=== PATIENT | female | born 2000 | race Caucasian/White ===

== ENCOUNTER 2018-02-04 14:49 | Emergency (ER) | payer OTHER ==
--- NOTE | 2018-02-04 16:09 | RAD REPORT ---
EXAM DESCRIPTION: RAD - Hand Right 3 View - 02/04/2018 4:00 pm CLINICAL HISTORY: Laceration. COMPARISON: None. FINDINGS: No fracture is identified. There is no dislocation or periosteal reaction noted. No foreign body or other soft tissue abnormalit y. IMPRESSION: Negative right hand examination.
[2018-02-04] MEDS ORDERED: LIDOCAINE 1% 20 ML MDV ONE (17:23)
--- NOTE | 2018-02-04 18:10 | ER ---
Nurse's Notes [facility] Name: Jesse Arce Age: 17 yrs Sex: Female : 2000 Arrival Date: 02/04/2018 Time: 14:50 Bed 18 Private MD: None, None Diagnosis: Laceration without foreign body of right hand Presentation: 02/04 15:27 Presenting complaint: Patient states: i fell on my mirror and the mirror was broken, hj had a cut on my R hand; happened around 1:30pm today; denies tingling and numbness on the hand;. Transition of care: patient was not received from another setting of care. Complicating Factors: unknwon if glass or foreing body is present;. Onset of symptoms was February 04, 2018. Care prior to arrival: None. 15:27 Method Of Arrival: Ambulatory 15:27 Acuity: MAYA 4 hj Triage Assessment: 15:29 General: Appears in no apparent distress. uncomfortable, Behavior is calm, cooperative, hj appropriate for age. Pain: Complains of pain in dorsum of right hand. Injury Description: Laceration sustained to dorsum of right hand. 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 - Social history:: Smoking status: Patient/guardian denies using tobacco. Screenin:10 Abuse screen: Denies threats or abuse. Nutritional screening: No deficits noted. em Tuberculosis screening: No symptoms or risk factors identified. Fall Risk None identified. Assessment: 17:10 General: Appears in no apparent distress. comfortable, Behavior is calm, cooperative. em Pain: Complains of pain in right hand Pain currently is 4 out of 10 on a pain scale. Neuro: Level of Consciousness is awake, alert, obeys commands, Oriented to person, place, time, situation. Cardiovascular: Capillary refill < 3 seconds Patient's skin is warm and dry. Respiratory: Airway is patent Respiratory effort is even, unlabored, Respiratory pattern is regular, symmetrical. GI: Abdomen is flat. : No signs and/or symptoms were reported regarding the genitourinary system. EENT: No signs and/or symptoms were reported regarding the EENT system. Derm: Skin is intact, Skin is pink, warm \T\ dry. Musculoskeletal: Range of motion: intact in all extremities. Injury Description: Laceration sustained to right hand is clean, 0.5 to 2.5 cm long, was sustained 2-4 hours ago. is bleeding no active bleeding noted. 17:35 Reassessment: Patient appears in no apparent distress at this time. I agree with above iw assessment by Scot Armendariz LVN. 18:10 Reassessment: Patient appears in no apparent distress at this time. Patient and/or em family updated on plan of care and expected duration. Pain level reassessed. Patient is alert, oriented x 3, equal unlabored respirations, skin warm/dry/pink. Patient denies pain at this time. Vital Signs: 15:29 BP 122 / 76; Pulse 69; Resp 18; Temp 99.5(TE); Pulse Ox 100% on R/A; Weight 52.16 kg; hj Height 5 ft. 4 in. (162.56 cm); Pain 4/10; 17:33 BP 118 / 86; Pulse 70; Resp 16; Pulse Ox 99% on R/A; Pain 2/10; em 15:29 Body Mass Index 19.74 (52.16 kg, 162.56 cm) ED Course: 14:50 Patient arrived in ED. mr 14:51 None, None is Private Physician. mr 15:29 Triage completed. hj 15:31 Arm band placed on left wrist. hj 15:51 X-ray completed. Portable x-ray completed in exam room. Patient tolerated procedure ml well. 16:47 Deisi Ellsworth, FILM TECHNICIAN is PHCP. rh1 16:47 Theo Weir MD is Attending Physician. rh1 17:02 Scot Armendariz LVN is Primary Nurse. em 17:10 Patient has correct armband on for positive identification. Bed in low position. Call em light in reach. Side rails up X2. 17:45 Assist provider with laceration repair on right hand that was between 2.6 to 7.5 cm em using sutures. Set up tray. Performed by Deisi Ellsworth FILM TECHNICIAN Dressed with 4X4s, Neosporin, Patient tolerated well. 18:50 Patient did not have IV access during this emergency room visit. em Administered Medications: 17:20 Drug: Lidocaine (1 %) 1 vials {Note: administered by JAYNE Lipscomb.} Volume: 20 ml; Route: em Infiltration; Outcome: 18:09 Discharge ordered by . 1 18:49 Discharged to home ambulatory. em 18:49 Condition: good 18:49 Discharge instructions given to patient, family, Instructed on discharge instructions, follow up and referral plans. Demonstrated understanding of instructions, follow-up care. 18:51 Patient left the ED. em Signatures: Alanis James mr Armendariz, Scot, MATERIALS MANAGER MATERIALS MANAGER em Alexus Pickett, RN RN Consuelo Narvaez Rachel, NP FILM TECHNICIAN rh1 Abdelrahman Foster RN RN hj Corrections: (The following items were deleted from the chart) 15:31 15:29 Pulse 69bpm; Resp 18bpm; Pulse Ox 100% RA; Temp 99.5F Temporal; 52.16 kg; Height hj 5 ft. 4 in.; BMI: 19.7; Pain 4/10; hj 17:41 15:27 Presenting complaint: Patient states: i fell on my mirror and the mirroe got hj broke, had a cut on my R hand; happened around 1:30pm today; denies tingling and numbness on the hand; hj 18:01 17:10 No provider procedures requiring assistance completed. em em
--- NOTE | 2018-02-04 18:11 | EDPHYS ---
Physician Documentation [facility] Name: Jesse Arce Age: 17 yrs Sex: Female : 2000 Arrival Date: 02/04/2018 Time: 14:50 Bed 18 Private MD: None, None ED Physician Theo Weir HPI: 02/04 17:01 This 17 yrs old Female presents to ER via Ambulatory with complaints of rh1 Laceration To Hand. 17:01 The patient has a laceration related to: walking occurred at home, and has glass or an rh1 other foreign body present. The injury was accidental. The laceration(s) is(are) located on the dorsum of right hand. Onset: The symptoms/episode began/occurred today, 1 hour(s) ago. Associated signs and symptoms: Pertinent negatives: deformity, heavy bleeding, numbness distal to injury, suspected foreign body. The patient has not experienced similar symptoms in the past. The patient has not recently seen a physician. Pt. reports she was walking, tripped and fell into her mirror, causing laceration at right dorsal hand, approx. 1 cm. Base of wound visualized and without foreign body.. 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 - Social history:: Smoking status: Patient/guardian denies using tobacco. ROS: 17:01 Constitutional: Negative for fever rh1 17:01 Abdomen/GI: Negative for nausea and vomiting. 17:01 MS/extremity: Negative for decreased range of motion, pain, paresthesias. 17:01 Skin: Positive for laceration(s). 17:01 Neuro: Negative for numbness, tingling, weakness. 17:01 All other systems are negative. Exam: 17:01 Constitutional: This is a well developed, well nourished patient who is awake, alert, rh1 and in no acute distress. Head/Face: Normocephalic, atraumatic. Neck: Trachea midline, and no cervical lymphadenopathy. Supple, full range of motion without nuchal rigidity. No Meningismus. Cardiovascular: Regular rate and rhythm with a normal S1 and S2. No gallops, murmurs, or rubs. No JVD. No pulse deficits. Respiratory: Lungs have equal breath sounds bilaterally, clear to auscultation. No rales, rhonchi or wheezes noted. No increased work of breathing. Abdomen/GI: Soft, non-tender, with normal bowel sounds. No distension. No guarding or rebound. No evidence of tenderness throughout. Back: No spinal tenderness. No costovertebral tenderness. Full range of motion. MS/ Extremity: Pulses equal, no cyanosis. Neurovascular intact. Full, normal range of motion. 17:01 Skin: injury, laceration(s), the wound is approximately 1 cm(s), of the dorsum of right hand, that can be described as clean, linear, without bleeding, linear laceration at right dorsal hand approx. 2 cm total in length, with two superficial lacerations approx. 0.5 each, with central area of abrasion with wound edge approximation. 17:01 Neuro: Orientation: is normal, to person, place \T\ time. Mentation: is normal, lucid, able to follow commands, Motor: is normal, moves all fours, Sensation: is normal, no obvious gross deficits, numbness, is not appreciated, tingling, is not appreciated, Gait: is steady, at a normal pace, without difficulty. Vital Signs: 15:29 BP 122 / 76; Pulse 69; Resp 18; Temp 99.5(TE); Pulse Ox 100% on R/A; Weight 52.16 kg; Height 5 ft. 4 in. (162.56 cm); Pain 4/10; 17:33 BP 118 / 86; Pulse 70; Resp 16; Pulse Ox 99% on R/A; Pain 2/10; em 15:29 Body Mass Index 19.74 (52.16 kg, 162.56 cm) Laceration: 18:08 Wound Repair of 1cm ( 0.4in ) subcutaneous laceration to dorsum of right hand. Linear rh1 shaped.. Hemostasis noted.. Distal neuro/vascular/tendon intact. Anesthesia: Local anesthetic administered with 3 mls of 1% lidocaine. Wound prep: Moderate cleansing with hibiclenz by nurse, Wound irrigation with saline by nurse. Skin closed with 4 4-0 Prolene using simple sutures and sterile technique. Dressed with Bacitracin, 4x4's, non-adherent dressing. Patient tolerated well. MDM: 16:47 Patient medically screened. rh1 18:08 Data reviewed: vital signs, nurses notes, radiologic studies, plain films, and as a rh1 result, I will discharge patient. Data interpreted: Pulse oximetry: on room air is 100 %. Interpretation: normal. Counseling: I had a detailed discussion with the patient and/or guardian regarding: the historical points, exam findings, and any diagnostic results supporting the discharge/admit diagnosis, radiology results, the need for outpatient follow up, a family practitioner, to return to the emergency department if symptoms worsen or persist or if there are any questions or concerns that arise at home. 02/04 15:31 Order name: XRAY Hand RIGHT 3 View hj 02/04 16:09 Order name: RAD; Complete Time: 16:47 EDMS 02/04 17:00 Order name: Prolene, Sutures; Complete Time: 17:20 rh1 02/04 17:00 Order name: Dressing - Wound; Complete Time: 17:20 rh1 02/04 17:00 Order name: Gloves, Sterile; Complete Time: 17:20 rh1 02/04 17:00 Order name: Setup Suture Tray; Complete Time: 17:20 rh1 02/04 17:00 Order name: Wound Care: please clean with chlorhexidine and irrigate with ns; Complete rh1 Time: 17:20 Administered Medications: 17:20 Drug: Lidocaine (1 %) 1 vials {Note: administered by JAYNE Lipscomb.} Volume: 20 ml; Route: em Infiltration; Disposition: 02/05 14:52 Co-signature as Attending Physician, Theo Weir MD I agree with the assessment and venu plan of care. Disposition: 02/04/18 18:09 Discharged to Home. Impression: Laceration without foreign body of right hand. - Condition is Stable. - Discharge Instructions: Laceration Care, Adult, Sutured Wound Care. - Medication Reconciliation Form, Thank You Letter, Antibiotic Education, Prescription Opioid Use form. - Follow up: Private Physician; When: 10 - 14 days; Reason: Recheck today's complaints, Continuance of care, Staple/Suture removal, Re-evaluation by your physician. Follow up: Emergency Department; When: As needed; Reason: Fever > 102 F, If symptoms return, Trouble breathing, Worsening of condition. - Problem is new. - Symptoms have improved. - Notes: 1. Have your stitches removed in 10 days. Signatures: Dispatcher [employer] Theo Pierre, Scot Avelar MD, cha, RAIL GRINDER RAIL GRINDER Deisi Billings, MACHINE MAINTENANCE TECHNICIAN MACHINE MAINTENANCE TECHNICIAN rh1 Abdelrahman Foster RN RN hj
== END 2018-02-04 18:51 | disposition home or self-care (01) ==
LOC: ER 14:49
DX: W01.198A Fall on same level from slipping, tripping and stumbling with subsequent striking against other object, initial encounter; Y92.013 Bedroom of single-family (private) house as the place of occurrence of the external cause; Y93.89 Activity, other specified; S61.411A Laceration without foreign body of right hand, initial encounter
CPT/HCPCS: 99283